=== PATIENT | female | born 1940 | race Caucasian/White ===

== ENCOUNTER → 2016-10-08 | Outpatient (CLI) | payer MEDICARE, BC | LOC: MW.CHPOD 08:00 | CPT/HCPCS: 11056; 99204 ==

== ENCOUNTER → 2016-12-03 | Outpatient (CLI) | payer MEDICARE, BC ==
--- NOTE | 2016-12-08 14:26 | MY ---
EXAMINATION: Bilateral digital mammography utilizing CAD. HISTORY: Screening exam. Comparison is made to previous studies dated 12/03/2015, 10/26/2014, 014. FINDINGS: Bilateral heterogeneously dense breast tissue. No suspicious calcifications, masses or ar chitectural distortions. No pathologic appearing lymph nodes, no abnormal skin thickening or nipple inversion. CAD highlighted regions appear normal at this time. IMPRESSION: BI-RADS category I - negative mammogram. Continued screening according to ACR-ACS gu idelines suggested. THE FALSE-NEGATIVE RATE OF MAMMOGRAM IS APPROXIMATELY 10%. MANAGEMENT OF A PALPABLE ABNORMALITY MUST BE BASED UPON CLINICAL GROUNDS. SENSITIVITY FOR DETECTION OF ABNORMALITIES IN DENSE BREASTS IS LOW. NOTE: A letter will be sent to the patient regarding findings. [facility] -- DANAY Maxwell [phone] - FAX [phone]
== END ==
LOC: MW.MAM 08:58
PROVIDERS: ATTEND Nurse Practitioner Family
DX: Z12.31 Encounter for screening mammogram for malignant neoplasm of breast (principal); K57.90 Diverticulosis of intestine, part unspecified, without perforation or abscess without bleeding; H04.123 Dry eye syndrome of bilateral lacrimal glands; M85.80 Other specified disorders of bone density and structure, unspecified site; N94.819 Vulvodynia, unspecified
CPT/HCPCS: 99214; G0202; G0202-26

== ENCOUNTER 2019-12-20 07:54 | Day surgery (SDC) | payer MEDICARE, BC ==
[~2019-12-20 07:54] MED LIST: Sugammadex Sodium 200 MG/2 ML VIAL ONE
--- NOTE | 2019-12-20 08:26 | PCM.PREANE ---
Preanesthetic Assessment - Anesthesia/Transfusion/Family Hx Anesthesia History: Prior Anesthesia Without Reaction Other Type of Anesthesia Reaction Comment: DENIES ANY PROBLEMS WITH ANESTHESIA Family History of Anesthesia Reaction: No Transfusion History: No Prior Transfusion(s) Intubation History: Unknown - Review of Systems General: No Symptoms Pulmonary: No Symptoms Cardiovascular: No Symptoms Gastrointestinal: No Symptoms Neurological: No Symptoms Other: Reports: None - Physical Assessment Height: 5 ft 1.5 in Weight: 54.885 kg ASA Class: 2 Mental Status: Alert & Oriented x3 Airway Class: Mallampati = 2 Dentition: Reports: Normal Dentition, Bridge (upper - removed) Thyro-Mental Finger Breadths: 3 Mouth Opening Finger Breadths: 2 ROM/Head Extension: Full Lungs: Clear to Auscultation, Normal Respiratory Effort Cardiovascular: Regular Rate, Regular Rhythm - Allergies Allergies/Adverse Reactions: Allergies Allergy/AdvReac Type Severity Reaction Status Date / Time No Known Allergies Allergy Verified 12/15/19 14:14 - Blood Blood Available: No - Anesthesia Plan Pre-Op Medication Ordered: None - Acknowledgements Anesthesia Type Planned: General Anesthesia Pt an Appropriate Candidate for the Planned Anesthesia: Yes Alternatives and Risks of Anesthesia Discussed w Pt/Guardian: Yes Pt/Guardian Understands and Agrees with Anesthesia Plan: Yes PreAnesthesia Questionnaire HEENT History: Reports: Other (See Below) Other HEENT History: upper partial Cardiovascular History: Reports: None Respiratory History: Reports: None Gastrointestinal History: Reports: GERD, Hiatal Hernia Genitourinary History: Reports: None POT FLUXER History: Reports: Endometriosis, , Other (See Below) Other OB/BYN History: pelvic organ prolapse Musculoskeletal History: Reports: Fracture, Other (See Below) (osteopenia) Other Musculoskeletal History: hx fx wrist Neurological History: Reports: Migraines (not last 15 years), Vertigo Psychiatric History: Reports: None Endocrine/Metabolic History: Reports: Osteopenia Hematologic History: Reports: None Immunologic History: Reports: None Oncologic (Cancer) History: Reports: None Dermatologic History: Reports: None - Past Surgical History Head Surgeries/Procedures: Reports: None HEENT Surgical History: Reports: Cataract Surgery Cardiovascular Surgical History: Reports: None Respiratory Surgical History: Reports: None GI Surgical History: Reports: Appendectomy, Colonoscopy Female Surgical History: Reports: Hysterectomy Endocrine Surgical History: Reports: None Neurological Surgical History: Reports: None Musculoskeletal Surgical History: Reports: None Oncologic Surgical History: Reports: None Dermatological Surgical History: Reports: None - SUBSTANCE USE Smoking Status *Q: Never Smoker Recreational Drug Use History: No - HOME MEDS Home Medications: Home Meds Aspirin [Adult Low Dose Aspirin EC] 81 mg PO ASDIRECTED 06/15/14 [History] Calcium Carbonate/Vitamin D3 [Calcium 1,000 + D3 Caplet] 1 tab PO BID 06/15/14 [ History] Famotidine [Pepcid] 1 tab.chew CHEW ASDIRECTED 06/15/14 [History] Lutein/Minerals/Vit A,C & E [Ocuvite] 1 tab PO DAILY 06/15/14 [History] Meprobamate 400 mg PO TID PRN 06/15/14 [History] Scopolamine 1 patch TRDERM ASDIRECTED PRN 12/16/19 [History] cycloSPORINE [Restasis] 1 drop EYEBOTH BID 12/16/19 [History] lidocaine HCL [Lidocaine HCl] 1 applic VAG TID PRN 12/16/19 [History] - CURRENT (IN HOUSE) MEDS Current Meds: Current Medications Discontinued Medications Sugammadex Sodium (Bridion) Confirm Administered Dose 200 mg .ROUTE .STK-MED ONE Stop: 12/20/19 07:01
[2019-12-20 09:19] LABS: BLOOD UREA NITROGEN,BUN 15 mg/dL (7.0-18.0); CARBON DIOXIDE,CO2 29.6 mmol/L (21.0-32.0); CHLORIDE,CL 107 mmol/L (98-107); GLUCOSE RANDOM 122 mg/dL (74-106); POTASSIUM,K 3.8 mmol/L (3.5-5.1); SODIUM,NA 144 mmol/L (136-145)
[2019-12-20] MEDS ORDERED: Propofol 200 MG/20 ML SDV ONE (09:22)
[2019-12-20] MEDS ORDERED: fentaNYL 100 MCG/2 ML SDV ONE (09:22)
[2019-12-20] MEDS ORDERED: Midazolam 1 MG/ML 2 ML SDV ONE (09:22)
[2019-12-20] MEDS ORDERED: Ondansetron 4 MG/2 ML SDV ONE (09:24)
[2019-12-20] MEDS ORDERED: Glycopyrrolate 0.2 MG/ML SDV ONE (09:24)
[2019-12-20] MEDS ORDERED: Sodium Chloride 0.9% 20 ML ONE (09:35)
[2019-12-20] MEDS ORDERED: ceFAZolin 1 GM Vial ONE (09:35)
[2019-12-20] MEDS ORDERED: Furosemide 40 MG/4 ML VIAL ONE (10:20)
[2019-12-20] MEDS ORDERED: Fluorescein 5 ML Vial ONE (10:21)
[2019-12-20] MEDS ORDERED: Promethazine 25 MG/ML SDV IM PRN (11:25)
[2019-12-20] MEDS ORDERED: Acetaminophen 325 MG Tab PO PRN (11:25)
[2019-12-20] MEDS ORDERED: Ibuprofen 400 MG Tab PO PRN (11:25)
[2019-12-20] MEDS ORDERED: Ondansetron 4 MG/2 ML SDV IVPUSH PRN (11:25)
--- NOTE | 2019-12-20 11:25 | PCM.OPNOTE ---
- General Post-Op/Procedure Note Date of Surgery/Procedure: 12/20/19 Operative Procedure(s): anterior colporrhaphy, cystotomy and repair, cystoscopy Findings: 3rd degree cystocele, no significant enterocele Pre Op Diagnosis: symptomatic cystocele Post-Op Diagnosis: Same Anesthesia Technique: Spinal Primary Surgeon: Liv Ford Secondary Surgeon: Shira Macias Anesthesia Provider: Radha Zavala [employer]: Osorio Rubin Pathology: vaginal mucosa EBL in mLs: 20 Complications: cystotomy Condition: Good
[2019-12-20] MEDS ORDERED: Scopolamine 1.5 MG Transdermal Patch TRDERM PRN (11:30)
--- NOTE | 2019-12-20 15:26 | PCM.POSTAN ---
POST ANESTHESIA ASSESSMENT - MENTAL STATUS Mental Status: Alert, Oriented - VITAL SIGNS Vital Signs: Last Vital Signs Temp 36.9 C 12/20/19 12:00 Pulse 74 12/20/19 14:15 Resp 15 12/20/19 14:15 BP 138/72 12/20/19 14:15 Pulse Ox 97 12/20/19 14:15 - RESPIRATORY Respiratory Status: Respiratory Rate WNL, Airway Patent, O2 Saturation Stable - CARDIOVASCULAR CV Status: Pulse Rate WNL, Blood Pressure Stable - GASTROINTESTINAL GI Status: No Symptoms - PAIN Pain Score: 0 - POST OP HYDRATION Hydration Status: Adequate & Stable - OBSERVATIONS Free Text/Narrative:: No anesthesia problems
--- NOTE | 2019-12-20 17:22 | OR ---
SURGEON: Liv Ford M.D. DATE OF PROCEDURE: 12/20/2019 PREOPERATIVE DIAGNOSIS: Vaginal prolapse after hysterectomy. POSTOPERATIVE DIAGNOSIS: Third-degree cystocele. PROCEDURES: Anterior colporrhaphy, cystotomy, and repair with cystoscopy. PRIMARY SURGEON: Liv Ford MD PSYCHOLOGY PHYSICIAN: Shira Macias MD ANESTHESIA: Spinal. ESTIMATED BLOOD LOSS: Less than 30 mL. FINDINGS: Third-degree cystocele, upon entering what appeared to be an enterocele. This was actually the protrusion of the cystocele down to the vaginal introitus. After repair, cystoscopy revealed copious flow from bilateral ureteral orifices as well as hemostasis of the repair site. Also, after instilling sterile formula, the repair site was intact without any leakage. COMPLICATION: Cystotomy. DISPOSITION: Stable to Recovery. BRIEF HISTORY: This is a 79-year-old female with pelvic organ prolapse. She has noticed uncomfortable bulge coming from her vagina. It has been worsening. It is worse when standing. She has trouble initiating voiding. She had a hysterectomy many years ago for endometriosis. She knows what a pessary is and declines to be fitted for a pessary. She denies any vaginal discharge or odor. She denies any difficulty initiating bowel movements. On examination in the clinic, she appeared to have a third-degree cystocele with enterocele, and she desired to proceed with surgical correction. She was consented for an anterior colporrhaphy with a possible vaginal vault suspension depending on findings intraoperatively as well as cystoscopy with surgical risks including bleeding; infection; injury to bowel, bladder, blood vessels, ureters, or other organs; risk of thromboembolic event; risk of recurrence of 30% to 40%; risk of new- onset stress incontinence; and risk of anesthesia. Additional risk of the vaginal vault suspension included increased risk of ureteral obstruction. Understanding all these risks, she does desire to proceed. DESCRIPTION OF PROCEDURE: With the patient in dorsal lithotomy position, under adequate spinal analgesia, the perineum and vagina were prepped with Betadine and draped in the usual fashion for vaginal surgery. SCDs were in place. A Stevens catheter had been placed and an appropriate time-out was held. She had received a gram of Ancef preoperatively. The exam under anesthesia revealed a third-degree cystocele and enterocele. A weighted speculum was placed posteriorly. The anterior vaginal wall was grasped 2 cm cephalad from the urethral meatus. Below this level, there was good rugation of the vagina. Hydrodissection was then performed. A 15 blade scalpel was used to incise in the midline, and Metzenbaum scissors were used to undermine the vaginal mucosa to the apex of the vagina. Proceeding up to the apex of the vagina and slightly beyond, there was noted to be what appeared to be an enterocele. I had dissected using sharp and blunt dissection the muscularis role player the overlying vaginal mucosa. At the apex, I grasped with hemostats what appeared to be the enterocele. I placed my scissors behind the tissue, which was translucent, and incised and there was a fairly large amount of yellow fluid, which was felt to be urine. I did explore with the finger and felt the Stevens bulb and therefore the edges of the defect were grasped with small hemostats. A 3-0 chromic was utilized to close the defect in a pursestring fashion reducing the tissue and a two-layer closure using 3-0 Vicryl was utilized in a running fashion in a cephalad to caudad direction and then a transverse direction. 80 mL of sterile formula was then instilled into the bladder and there was no leakage from the site. Therefore, I did proceed to close the muscularis layer in a two-layer fashion using multiple interrupted mattress sutures of 2-0 Vicryl to close the anterior cystocele. Once the cystocele was closed and the apex was reduced, the vaginal vault actually had good support and cystoscopy was then performed. After IV Lasix and fluorescein had been given, there was copious flow of bright green urine from bilateral ureteral orifices. The area of the repair, which was in the midline of the bladder, was hemostatic, and again with the fluorescein present in the bladder, there was no leakage from the repair site. The vaginal mucosa was then closed using a running lock suture of 0 Polysorb. A new catheter was placed and the vagina was packed with vaginal packing and final sponge, needle, and instrument counts were reported as correct. Complication was cystotomy. The patient was transferred to Recovery in good condition. YUE / ISAAK /[id number]
[2019-12-20] MEDS ORDERED: Nitrofurantoin Monohydrate/Macrocrystalline 100 MG Cap PO SCH (21:00)
[2019-12-20] MEDS ORDERED: CYCLOSPORINE EYEBOTH SCH (21:00)
[2019-12-21 05:54] LABS: BLOOD UREA NITROGEN,BUN 15 mg/dL (7.0-18.0); CARBON DIOXIDE,CO2 28.5 mmol/L (21.0-32.0); CHLORIDE,CL 103 mmol/L (98-107); GLUCOSE RANDOM 89 mg/dL (74-106); POTASSIUM,K 3.8 mmol/L (3.5-5.1); SODIUM,NA 138 mmol/L (136-145)
--- NOTE | 2019-12-21 06:59 | PCM48HPAN ---
Post Anesthesia Note - EVALUATION WITHIN 48HRS OF ANESTHETIC Vital Signs in Normal Range: Yes Patient Participated in Evaluation: Yes Respiratory Function Stable: Yes Airway Patent: Yes Cardiovascular Function Stable: Yes Hydration Status Stable: Yes Pain Control Satisfactory: Yes Nausea and Vomiting Control Satisfactory: Yes Mental Status Recovered: Yes Vital Signs: Last Vital Signs Temp 97.1 F 12/21/19 04:12 Pulse 72 12/21/19 04:12 Resp 14 12/21/19 04:12 BP 132/50 L 12/21/19 04:12 Pulse Ox 96 12/21/19 04:12
--- NOTE | 2019-12-21 08:15 | PCM.SURGPN ---
- General Info Date of Service: 12/21/19 Date of Surgery/Procedure: 12/20/19 POD#: 1 Post-Op Diagnosis: cystocele Functional Status: Reports: Pain Controlled, Tolerating Diet, Ambulating. Denies: Urinating (catheter in place) - Review of Systems General: Reports: No Symptoms HEENT: Reports: No Symptoms Pulmonary: Reports: No Symptoms Cardiovascular: Reports: No Symptoms Gastrointestinal: Reports: No Symptoms Genitourinary: Reports: No Symptoms Musculoskeletal: Reports: No Symptoms Skin: Reports: No Symptoms Neurological: Reports: No Symptoms Psychiatric: Reports: No Symptoms - Patient Data Vitals - Most Recent: Last Vital Signs Temp 36.2 C 12/21/19 04:12 Pulse 72 12/21/19 04:12 Resp 14 12/21/19 04:12 BP 132/50 L 12/21/19 04:12 Pulse Ox 96 12/21/19 04:12 Weight - Most Recent: 54.885 kg I&O - Last 24 Hours: Intake & Output 12/20/19 12/21/19 12/21/19 22:59 06:59 14:59 Intake Total 900 Output Total 450 1150 Balance 450 -1150 Lab Results Last 24 Hrs: Laboratory Results - last 24 hr 12/20/19 12/20/19 12/20/19 Range/Units 08:38 08:38 08:38 WBC 3.70 L (4.0-11.0) K/uL RBC 4.60 (4.30-5.90) M/uL Hgb 13.8 (12.0-16.0) g/dL Hct 42.7 (36.0-46.0) % MCV 92.8 (80.0-98.0) fL MCH 30.0 (27.0-32.0) pg MCHC 32.3 (31.0-37.0) g/dL RDW Std Deviation 48.9 (28.0-62.0) fl RDW Coeff of Julissa 14 (11.0-15.0) % Plt Count 165 (150-400) K/uL MPV 10.70 (7.40-12.00) fL Neut % (Auto) (48.0-80.0) % Lymph % (Auto) (16.0-40.0) % Luna % (Auto) (0.0-15.0) % Eos % (Auto) (0.0-7.0) % Baso % (Auto) (0.0-1.5) % Neut # (Auto) (1.4-5.7) K/uL Lymph # (Auto) (0.6-2.4) K/uL Luna # (Auto) (0.0-0.8) K/uL Eos # (Auto) (0.0-0.7) K/uL Baso # (Auto) (0.0-0.1) K/uL Nucleated RBC % 0.0 /100WBC Nucleated RBCs # 0 K/uL Sodium 144 (136-145) mmol/L Potassium 3.8 (3.5-5.1) mmol/L Chloride 107 (98-107) mmol/L Carbon Dioxide 29.6 (21.0-32.0) mmol/L BUN 15 (7.0-18.0) mg/dL Creatinine 0.8 (0.6-1.0) mg/dL Est Cr Clr Drug Dosing 44.79 mL/min Estimated GFR (MDRD) > 60.0 ml/min Glucose 122 H (74-106) mg/dL Calcium 9.3 (8.5-10.1) mg/dL Blood Type O POSITIVE Antibody Screen NEGATIVE 12/21/19 12/21/19 Range/Units 05:00 05:00 WBC 6.55 (4.0-11.0) K/uL RBC 4.17 L (4.30-5.90) M/uL Hgb 12.3 (12.0-16.0) g/dL Hct 38.4 (36.0-46.0) % MCV 92.1 (80.0-98.0) fL MCH 29.5 (27.0-32.0) pg MCHC 32.0 (31.0-37.0) g/dL RDW Std Deviation 48.0 (28.0-62.0) fl RDW Coeff of Julissa 14 (11.0-15.0) % Plt Count 151 (150-400) K/uL MPV 10.50 (7.40-12.00) fL Neut % (Auto) 63.9 (48.0-80.0) % Lymph % (Auto) 22.7 (16.0-40.0) % Luna % (Auto) 11.1 (0.0-15.0) % Eos % (Auto) 2.0 (0.0-7.0) % Baso % (Auto) 0.3 (0.0-1.5) % Neut # (Auto) 4.2 (1.4-5.7) K/uL Lymph # (Auto) 1.5 (0.6-2.4) K/uL Luna # (Auto) 0.7 (0.0-0.8) K/uL Eos # (Auto) 0.1 (0.0-0.7) K/uL Baso # (Auto) 0.0 (0.0-0.1) K/uL Nucleated RBC % 0.0 /100WBC Nucleated RBCs # 0 K/uL Sodium 138 (136-145) mmol/L Potassium 3.8 (3.5-5.1) mmol/L Chloride 103 (98-107) mmol/L Carbon Dioxide 28.5 (21.0-32.0) mmol/L BUN 15 (7.0-18.0) mg/dL Creatinine 0.7 (0.6-1.0) mg/dL Est Cr Clr Drug Dosing 51.18 mL/min Estimated GFR (MDRD) > 60.0 ml/min Glucose 89 (74-106) mg/dL Calcium 8.4 L (8.5-10.1) mg/dL Blood Type Antibody Screen Med Orders - Current: Current Medications Acetaminophen (Tylenol) 650 mg PO Q4H PRN PRN Reason: Pain (mild 1-3) Ibuprofen (Motrin) 400 mg PO Q6H PRN PRN Reason: Pain (mild 1-3) Last Admin: 12/20/19 20:28 Dose: 400 mg Nitrofurantoin Macrocrystals (Macrobid) 100 mg PO BEDTIME [facility] Last Admin: 12/20/19 20:28 Dose: 100 mg Non-Formulary Medication (Cyclosporine) 1 drop EYEBOTH BID [facility] Last Admin: 12/20/19 22:04 Dose: Not Given Pepcid Complete 1 each PO ASDIRECTED [facility] Ondansetron HCl (Zofran) 4 mg IVPUSH Q6H PRN PRN Reason: Nausea/Vomiting Promethazine HCl (Phenergan) 25 mg IM Q6H PRN PRN Reason: Nausea/Vomiting Scopolamine (Transderm-Scop) 1.5 mg TRDERM ASDIRECTED PRN PRN Reason: Nausea Discontinued Medications Cefazolin Sodium (Ancef) Confirm Administered Dose 1 gm .ROUTE .STK-MED ONE Stop: 12/20/19 09:36 Fentanyl (Sublimaze) Confirm Administered Dose 100 mcg .ROUTE .STK-MED ONE Stop: 12/20/19 09:23 Fluorescein Sodium (Ak-Fluor) Confirm Administered Dose 5 ml .ROUTE .STK-MED ONE Stop: 12/20/19 10:22 Furosemide (Lasix) Confirm Administered Dose 40 mg .ROUTE .STK-MED ONE Stop: 12/20/19 10:21 Glycopyrrolate (Robinul) Confirm Administered Dose 0.2 mg .ROUTE .STK-MED ONE Stop: 12/20/19 09:25 Sodium Chloride (Normal Saline) Confirm Administered Dose 20 mls @ as directed .ROUTE .STK-MED ONE Stop: 12/20/19 09:36 Midazolam HCl (Versed 1 Mg/Ml) Confirm Administered Dose 2 mg .ROUTE .STK-MED ONE Stop: 12/20/19 09:23 Ondansetron HCl (Zofran) Confirm Administered Dose 4 mg .ROUTE .STK-MED ONE Stop: 12/20/19 09:25 Propofol (Diprivan 20 Ml) Confirm Administered Dose 600 mg .ROUTE .STK-MED ONE Stop: 12/20/19 09:23 Sugammadex Sodium (Bridion) Confirm Administered Dose 200 mg .ROUTE .STK-MED ONE Stop: 12/20/19 07:01 - Exam General: Alert, Oriented HEENT: Pupils Equal (packing removed dark red blood) Lungs: Normal Respiratory Effort GI/Abdominal Exam: Soft, Non-Tender Extremities: Non-Tender, No Pedal Edema Neurological: No New Focal Deficit Psy/Mental Status: Alert Sepsis Event Note - Evaluation Sepsis Screening Result: No Definite Risk - Focused Exam Vital Signs: Vital Signs Temp Pulse Resp BP Pulse Ox 12/21/19 04:12 36.2 C 72 14 132/50 L 96 12/21/19 00:12 37.1 C 83 16 122/57 L 97 Date Exam was Performed: 12/21/19 Time Exam was Performed: 08:13 - Problem List & Annotations (1) Cystocele SNOMED Code(s): 452056455 Code(s): HVE6414 - Status: Acute Current Visit: Yes - Problem List Review Problem List Initiated/Reviewed/Updated: Yes - My Orders Last 24 Hours: Active Orders 24 hr Category Date Time Status Patient Status [ADT] Routine ADT 12/20/19 11:25 Active Antiembolic Devices [RC] PER UNIT ROUTINE Care 12/20/19 11:26 Active Notify Provider Intake and Out [RC] ASDIRECTED Care 12/20/19 11:25 Active Notify Provider Vital Signs [RC] ASDIRECTED Care 12/20/19 11:25 Active Oxygen Therapy [RC] ASDIRECTED Care 12/20/19 11:25 Active RT Incentive Spirometry [RC] Q2HWA Care 12/20/19 11:25 Active Up With Assistance [RC] PER UNIT ROUTINE Care 12/20/19 11:25 Active Up ad Faiza [RC] PER UNIT ROUTINE Care 12/20/19 11:25 Active Regular Diet [DIET] Diet 12/20/19 Dinner Active Acetaminophen [Tylenol] Med 12/20/19 11:25 Active 650 mg PO Q4H PRN Ibuprofen [Motrin] Med 12/20/19 11:25 Active 400 mg PO Q6H PRN Nitrofurantoin Luna/Macrocryst [Macrobid] Med 12/20/19 21:00 Active 100 mg PO BEDTIME Non-Formulary Medication [NF Drug] Med 12/20/19 11:30 Active 1 each PO ASDIRECTED Ondansetron [Zofran] Med 12/20/19 11:25 Active 4 mg IVPUSH Q6H PRN Promethazine [Phenergan] Med 12/20/19 11:25 Active 25 mg IM Q6H PRN Scopolamine [Transderm-Scop] Med 12/20/19 11:30 Active 1.5 mg TRDERM ASDIRECTED PRN cycloSPORINE Med 12/20/19 21:00 Active 1 drop EYEBOTH BID Peripheral IV Discontinue [OM.PC] Routine Oth 12/20/19 11:25 Ordered Remove Vaginal Packing [OM.PC] Per Unit Routine Oth 12/20/19 11:26 Ordered Sequential Compression Device [OM.PC] Per Unit Routine Oth 12/20/19 11:25 Ordered Resuscitation Status Routine Resus Stat 12/20/19 11:25 Ordered Medication Orders Acetaminophen (Tylenol) 650 mg PO Q4H PRN PRN Reason: Pain (mild 1-3) Ibuprofen (Motrin) 400 mg PO Q6H PRN PRN Reason: Pain (mild 1-3) Last Admin: 12/20/19 20:28 Dose: 400 mg Nitrofurantoin Macrocrystals (Macrobid) 100 mg PO BEDTIME [facility] Last Admin: 12/20/19 20:28 Dose: 100 mg Non-Formulary Medication (Cyclosporine) 1 drop EYEBOTH BID [facility] Last Admin: 12/20/19 22:04 Dose: Not Given Pepcid Complete 1 each PO ASDIRECTED [facility] Ondansetron HCl (Zofran) 4 mg IVPUSH Q6H PRN PRN Reason: Nausea/Vomiting Promethazine HCl (Phenergan) 25 mg IM Q6H PRN PRN Reason: Nausea/Vomiting Scopolamine (Transderm-Scop) 1.5 mg TRDERM ASDIRECTED PRN PRN Reason: Nausea
[2019-12-21 08:59] VITALS: BP 121/58; PULSE 75
== END 2019-12-21 09:45 | disposition home or self-care (01) ==
LOC: MW.SDS 07:54 → MW.OB 12:26 → MW.SDS 12-21 09:45
PROVIDERS: ATTEND Obstetrics & Gynecology
DX: N81.11 Cystocele, midline (principal); Z79.899 Other long term (current) drug therapy
CPT/HCPCS: 36415; 57240; 80048; 85025; 85027; 86850; 86900; 86901; 88304; A9270; J0690; J1940; J2250; J2405; J2704; J3490; J3010

== ENCOUNTER 2023-10-20 12:18 | Day surgery (SDC) | payer MEDICARE, BC ==
[~2023-10-20 12:18] MED LIST changes: +Albuterol 0.083% 2.5 MG/3 ML Neb Soln NEB PRN; +HYDROmorphone 1 MG/ML Syringe IVPUSH PRN; +Metoclopramide 10 MG/2 ML SDV IVPUSH PRN; +Morphine 2 MG/ML SYRINGE IVPUSH PRN; +Naloxone 0.4 MG/ML SDV IVPUSH PRN; +Ondansetron 4 MG/2 ML SDV IVPUSH PRN; -Sugammadex Sodium 200 MG/2 ML VIAL ONE; +ceFAZolin 1 GM in Sodium Chloride 0.9% 50 ML IV ONE; +droPERidol 5 MG/2 ML SDV IVPUSH PRN; +fentaNYL 50 MCG/ML SDV IVPUSH PRN
[2023-10-20] MEDS: Lactated Ringers 1,000 ML IV SCH (13:21)
[2023-10-20] MEDS ORDERED: Ondansetron 4 MG/2 ML SDV ONE (15:00)
[2023-10-20] MEDS ORDERED: fentaNYL 100 MCG/2 ML SDV ONE (15:00)
[2023-10-20] MEDS ORDERED: Propofol 200 MG/20 ML SDV ONE ×2 (15:00→16:33)
[2023-10-20] MEDS ORDERED: Lidocaine 2% 5 ML SDV ONE (15:00)
[2023-10-20] MEDS ORDERED: Ropivacaine 0.5% 5 MG/ML 30 ML SDV ONE (15:05)
[2023-10-20] MEDS ORDERED: Bupivacaine 0.25% 30 ML SDV ONE (15:05)
[2023-10-20] MEDS ORDERED: ePHEDrine 50 MG/ML SDV ONE (16:05)
[2023-10-20] MEDS ORDERED: ceFAZolin 2 GM Vial ONE (16:05)
[2023-10-20 19:55] VITALS: BP 174/100; PULSE 67
== END 2023-10-20 19:45 | disposition home or self-care (01) ==
LOC: MW.SDS 12:18 → MW.MS 18:21 → MW.SDS 19:45
PROVIDERS: ATTEND Orthopaedic Surgery
DX: S93.432A Sprain of tibiofibular ligament of left ankle, initial encounter (principal); S82.842A Displaced bimalleolar fracture of left lower leg, initial encounter for closed fracture; K57.90 Diverticulosis of intestine, part unspecified, without perforation or abscess without bleeding; M79.672 Pain in left foot; M79.671 Pain in right foot; M81.0 Age-related osteoporosis without current pathological fracture; M71.20 Synovial cyst of popliteal space [Baker], unspecified knee; K21.9 Gastro-esophageal reflux disease without esophagitis; K64.9 Unspecified hemorrhoids; M85.80 Other specified disorders of bone density and structure, unspecified site; Z79.899 Other long term (current) drug therapy; X58.XXXA Exposure to other specified factors, initial encounter
CPT/HCPCS: 27814; 27829; 64448; 76000; J0131; J0665; J0690; J2405; J2704; J2795; J3010; J7120; 01480; 27792; 64447; 99100; C1713; J3490